=== PATIENT | male | born 1950 | race Caucasian/White ===

== ENCOUNTER 2021-09-25 15:30 | Inpatient (IN) ==
[2021-09-25] MEDS ORDERED: Iopamidol - 370 500 ML MLS IVP ONE (15:49)
[2021-09-25 16:02] LABS: Immature Granulocytes % 0.3 % (0-4); Red Cell Distribution Width 13.4 % (11.5-14.5)
[2021-09-25 16:04] LABS: Basophils % 0.1 %; Hematocrit 39.9 % (37.5-50.1); Hemoglobin 13.3 g/dL (12.9-16.9); Immature Platelets 3.8 % (1.1-6.1); Lymphocytes # 1.5 K/mcL (0.6-4.6); Lymphocytes % 21.4 %; Mean Corpuscular HGB Conc 33.3 g/dL (31.6-35.5); Mean Corpuscular Hemoglobin 29.7 pg (28.0-33.3); Mean Corpuscular Volume 89.1 fL (83.0-100.0); Mean Platelet Volume 10.2 fL (9.4-12.4); Monocytes # 1.1 K/mcL (0.0-1.3); Monocytes % 14.9 %; Neutrophils # 4.6 K/mcL (1.6-8.9); Platelet Count 137 K/mcL (140-400); Red Blood Count 4.48 M/mcL (4.19-5.50); Segmented Neutrophils % 63.3 %; White Blood Count 7.2 K/mcL (4.3-11.1)
[2021-09-25 16:06] LABS: VBG HCO3 26 mEq/L (21-27); VBG PCO2 51 mmHg (41-51); VBG PH 7.32 pH Units (7.32-7.42); VBG PO2 40 mmHg (25-50)
[2021-09-25 16:23] LABS: Alanine Aminotransferase 40 Units/L (7-52); Albumin 3.9 g/dL (3.5-5.7); Albumin/Globulin Ratio 1.3 (1.1-2.2); Alkaline Phosphatase 39 Units/L (34-104); Aspartate Amino Transferase 65 Units/L (13-39); BUN/Creatinine Ratio 21 (6-26); Bilirubin,Total 0.4 mg/dL (0.3-1.0); Blood Urea Nitrogen 19 mg/dL (8-23); Calcium 8.7 mg/dL (8.6-10.3); Carbon Dioxide 28 mEq/L (23-29); Chloride 104 mEq/L (98-107); Creatine Kinase 1707 Units/L (30-223); Globulin 2.9 g/dL (2.4-3.5); Glucose 103 mg/dL (70-105); Magnesium 1.9 mg/dL (1.6-2.6); Osmolality,Calculated 289 (280-300); Potassium 3.5 mEq/L (3.5-5.1); Sodium 138 mEq/L (136-145); Total Protein 6.8 g/dL (6.4-8.9); Troponin I < 0.03 ng/mL (< 0.04); eGFR For African Americans > 60 (> 60); eGFR For Non-African Americans > 60 (> 60)
[2021-09-25 16:28] LABS: Bilirubin,Urine Negative (Negative); Blood,Urine Moderate (Negative); Clarity,Urine Clear (Clear); Color,Urine Yellow (Yellow); Glucose,Urine (UA) Normal (Normal); Ketones,Urine Negative (Negative); Leukocyte Esterase,Urine Negative (Negative); Mucus,Urine Few per lpf (None-Few); Nitrite,Urine Negative (Negative); Protein,Urine 70 mg/dL (Neg-Trace); Urobilinogen,Urine Normal (Normal)
[2021-09-25] MEDS ORDERED: 0.9 % Sodium Chloride 1,000 ML IVC ONE (18:24)
[2021-09-25] MEDS ORDERED: Acetaminophen 325 MG TABLET PO PRN (19:48)
[2021-09-25] MEDS ORDERED: *HR* OxyCODONE Immed Rel 5 MG TABLET PO PRN (19:48)
[2021-09-25] MEDS ORDERED: Naloxone 0.4 MG/ML INJ IVP PRN (19:48)
[2021-09-25] MEDS ORDERED: *HR* HYDROcodone/Acet 5/325 mg TABLET PO PRN (19:48)
[2021-09-25] MEDS ORDERED: Ondansetron 4 MG/2 ML VIAL IVP PRN (19:48)
[2021-09-25] MEDS ORDERED: Remdesivir 200 MG in 0.9 % Sodium Chloride 100 ML IVPB ONE (21:30)
[2021-09-25] MEDS ORDERED: Haloperidol Lactate 5 MG/ML VIAL IM ONE (23:29)
[2021-09-25] MEDS: QUEtiapine Fumarate 25 MG TABLET PO SCH (23:50)
[2021-09-25] MEDS: OLANZapine 5 MG TAB.RAPDIS PO PRN (23:50)
[2021-09-25] MEDS: Melatonin 3 MG TABLET PO PRN (23:51)
[2021-09-26] MEDS ORDERED: Remdesivir 200 MG in 0.9 % Sodium Chloride 100 ML IVPB ONE (01:00)
[2021-09-26] MEDS: Dexamethasone Sodium Phos/PF 10 MG/ML VIAL IVP SCH ×2 (01:38→08:37)
[2021-09-26] MEDS: 0.9 % Sodium Chloride 1,000 ML IVC SCH ×2 (01:39→06:56)
[2021-09-26] MEDS: *HR* Enoxaparin 40 MG/0.4 ML SYRINGE SQ SCH (06:56)
[2021-09-26] MEDS: Aspirin Enteric Coated 81 MG Tablet PO SCH (08:37)
[2021-09-26] MEDS: Cholecalciferol (D-3) 1,000 UNIT (25MCG) TABLET PO SCH (08:37)
[2021-09-26] MEDS: lisinopriL 20 MG TABLET PO SCH (08:37)
[2021-09-26] MEDS: Loratadine 10 MG TABLET PO SCH (08:37)
[2021-09-26 10:59] LABS: Basophils % 0.1 %; Hematocrit 39.4 % (37.5-50.1); Hemoglobin 13.4 g/dL (12.9-16.9); Immature Granulocytes % 0.7 % (0-4); Lymphocytes # 0.6 K/mcL (0.6-4.6); Lymphocytes % 6.3 %; Mean Corpuscular Hemoglobin 29.8 pg (28.0-33.3); Mean Corpuscular Volume 87.8 fL (83.0-100.0); Mean Platelet Volume 10.1 fL (9.4-12.4); Monocytes # 0.4 K/mcL (0.0-1.3); Monocytes % 4.5 %; Neutrophils # 8.1 K/mcL (1.6-8.9); Platelet Count 149 K/mcL (140-400); Red Blood Count 4.49 M/mcL (4.19-5.50); Red Cell Distribution Width 13.3 % (11.5-14.5); Segmented Neutrophils % 88.4 %; White Blood Count 9.2 K/mcL (4.3-11.1)
[2021-09-26 11:17] LABS: Albumin 3.7 g/dL (3.5-5.7); Albumin/Globulin Ratio 1.4 (1.1-2.2); Bilirubin,Direct 0.1 mg/dL (0.0-0.2); Bilirubin,Indirect 0.3 mg/dL (0.0-1.0); Bilirubin,Total 0.4 mg/dL (0.3-1.0); Globulin 2.6 g/dL (2.4-3.5); Total Protein 6.3 g/dL (6.4-8.9)
[2021-09-26 11:20] LABS: Alanine Aminotransferase 33 Units/L (7-52); Albumin 3.6 g/dL (3.5-5.7); Albumin/Globulin Ratio 1.2 (1.1-2.2); Alkaline Phosphatase 33 Units/L (34-104); Aspartate Amino Transferase 46 Units/L (13-39); BUN/Creatinine Ratio 24 (6-26); Bilirubin,Total 0.4 mg/dL (0.3-1.0); Blood Urea Nitrogen 19 mg/dL (8-23); C-Reactive Protein 80 mg/L (Less than 10); Calcium 8.4 mg/dL (8.6-10.3); Carbon Dioxide 23 mEq/L (23-29); Chloride 108 mEq/L (98-107); Chol/HDL Ratio 2.8 (0-4.9); Cholesterol 111 mg/dL (< 200); Creatine Kinase 970 Units/L (30-223); Globulin 2.9 g/dL (2.4-3.5); Glucose 140 mg/dL (70-105); HDL Cholesterol 40 mg/dL (40-59); LDL Cholesterol,Calculated 58 mg/dL (< 100); Lactate Dehydrogenase 163 Units/L (140-271); Magnesium 1.8 mg/dL (1.6-2.6); Osmolality,Calculated 291 (280-300); Phosphorous 3.4 mg/dL (2.7-4.5); Sodium 138 mEq/L (136-145); Total Protein 6.5 g/dL (6.4-8.9); Triglycerides 63 mg/dL (< 150); eGFR For African Americans > 60 (> 60); eGFR For Non-African Americans > 60 (> 60)
[2021-09-26 11:21] LABS: INR 1.1; Prothrombin Time 12.5 Seconds (9.4-12.1)
[2021-09-26 11:37] LABS: Ferritin 153 ng/mL (20-250)
[2021-09-26] MEDS ORDERED: Remdesivir 100 MG in 0.9 % Sodium Chloride 100 ML IVPB SCH (20:00)
[2021-09-26] MEDS: QUEtiapine Fumarate 25 MG TABLET PO SCH (20:15)
[2021-09-27] MEDS ORDERED: Remdesivir 100 MG in 0.9 % Sodium Chloride 100 ML IVPB SCH (01:00)
[2021-09-27] MEDS: *HR* Enoxaparin 40 MG/0.4 ML SYRINGE SQ SCH (05:30)
[2021-09-27] MEDS: Dexamethasone Sodium Phos/PF 10 MG/ML VIAL IVP SCH ×2 (09:45→10:38)
[2021-09-27] MEDS: Loratadine 10 MG TABLET PO SCH (10:24)
[2021-09-27] MEDS: Aspirin Enteric Coated 81 MG Tablet PO SCH (10:24)
[2021-09-27] MEDS: Cholecalciferol (D-3) 1,000 UNIT (25MCG) TABLET PO SCH (10:25)
[2021-09-27] MEDS: lisinopriL 20 MG TABLET PO SCH (10:25)
[2021-09-27 10:31] LABS: Hematocrit 38.6 % (37.5-50.1); Hemoglobin 13.1 g/dL (12.9-16.9); Mean Corpuscular HGB Conc 33.9 g/dL (31.6-35.5); Mean Corpuscular Hemoglobin 29.4 pg (28.0-33.3); Mean Corpuscular Volume 86.7 fL (83.0-100.0); Mean Platelet Volume 10.3 fL (9.4-12.4); Platelet Count 147 K/mcL (140-400); Red Blood Count 4.45 M/mcL (4.19-5.50); Red Cell Distribution Width 13.1 % (11.5-14.5); White Blood Count 9.2 K/mcL (4.3-11.1)
[2021-09-27 11:12] LABS: BUN/Creatinine Ratio 36 (6-26); Blood Urea Nitrogen 28 mg/dL (8-23); Calcium 8.5 mg/dL (8.6-10.3); Carbon Dioxide 25 mEq/L (23-29); Chloride 106 mEq/L (98-107); Glucose 91 mg/dL (70-105); Osmolality,Calculated 291 (280-300); Potassium 3.9 mEq/L (3.5-5.1); Sodium 138 mEq/L (136-145); eGFR For African Americans > 60 (> 60); eGFR For Non-African Americans > 60 (> 60)
[2021-09-27 11:13] LABS: Albumin 3.6 g/dL (3.5-5.7); Albumin/Globulin Ratio 1.4 (1.1-2.2); Bilirubin,Direct 0.1 mg/dL (0.0-0.2); Bilirubin,Indirect 0.4 mg/dL (0.0-1.0); Bilirubin,Total 0.5 mg/dL (0.3-1.0); Globulin 2.5 g/dL (2.4-3.5); Total Protein 6.1 g/dL (6.4-8.9)
[2021-09-27] MEDS: dexAMETHasone 4 MG TABLET PO SCH (12:57)
[2021-09-27] MEDS ORDERED: QUEtiapine Fumarate 25 MG TABLET PO ONE (14:59)
[2021-09-27] MEDS ORDERED: Haloperidol Lactate 5 MG/ML VIAL IM ONE (17:01)
[2021-09-27] MEDS: Melatonin 3 MG TABLET PO PRN (21:22)
[2021-09-27] MEDS: OLANZapine 5 MG TAB.RAPDIS PO PRN (21:23)
[2021-09-28] MEDS: *HR* Enoxaparin 40 MG/0.4 ML SYRINGE SQ SCH (05:20)
[2021-09-28 08:01] LABS: Hematocrit 41.9 % (37.5-50.1); Hemoglobin 14.1 g/dL (12.9-16.9); Mean Corpuscular HGB Conc 33.7 g/dL (31.6-35.5); Mean Corpuscular Hemoglobin 29.1 pg (28.0-33.3); Mean Corpuscular Volume 86.6 fL (83.0-100.0); Mean Platelet Volume 10.5 fL (9.4-12.4); Platelet Count 158 K/mcL (140-400); Red Blood Count 4.84 M/mcL (4.19-5.50); Red Cell Distribution Width 12.9 % (11.5-14.5); White Blood Count 9.8 K/mcL (4.3-11.1)
[2021-09-28 08:12] LABS: BUN/Creatinine Ratio 34 (6-26); Blood Urea Nitrogen 26 mg/dL (8-23); Calcium 8.9 mg/dL (8.6-10.3); Carbon Dioxide 23 mEq/L (23-29); Chloride 105 mEq/L (98-107); Glucose 84 mg/dL (70-105); Osmolality,Calculated 290 (280-300); Potassium 4.6 mEq/L (3.5-5.1); Sodium 138 mEq/L (136-145); eGFR For African Americans > 60 (> 60); eGFR For Non-African Americans > 60 (> 60)
[2021-09-28 08:13] LABS: Albumin 3.8 g/dL (3.5-5.7); Albumin/Globulin Ratio 1.4 (1.1-2.2); Bilirubin,Indirect 0.5 mg/dL (0.0-1.0); Bilirubin,Total 0.5 mg/dL (0.3-1.0); Globulin 2.8 g/dL (2.4-3.5); Total Protein 6.6 g/dL (6.4-8.9)
[2021-09-28] MEDS: dexAMETHasone 4 MG TABLET PO SCH (09:37)
[2021-09-28] MEDS: Aspirin Enteric Coated 81 MG Tablet PO SCH ×2 (09:37→15:28)
[2021-09-28] MEDS: Loratadine 10 MG TABLET PO SCH ×2 (09:37→15:28)
[2021-09-28] MEDS: Cholecalciferol (D-3) 1,000 UNIT (25MCG) TABLET PO SCH (09:38)
[2021-09-28] MEDS: lisinopriL 20 MG TABLET PO SCH ×2 (09:38→15:29)
[2021-09-28] MEDS: OLANZapine 5 MG TAB.RAPDIS PO PRN (23:20)
[2021-09-28] MEDS: Melatonin 3 MG TABLET PO PRN (23:20)
[2021-09-29] MEDS: *HR* Enoxaparin 40 MG/0.4 ML SYRINGE SQ SCH (06:59)
[2021-09-29] MEDS: Cholecalciferol (D-3) 1,000 UNIT (25MCG) TABLET PO SCH ×2 (10:14→10:25)
[2021-09-29] MEDS: dexAMETHasone 4 MG TABLET PO SCH ×2 (10:14→10:25)
[2021-09-29] MEDS ORDERED: Haloperidol Lactate 5 MG/ML VIAL IVP ONE (19:20)
[2021-09-29] MEDS ORDERED: Haloperidol Lactate 5 MG/ML VIAL IM ONE (19:22)
[2021-09-29] MEDS: Melatonin 3 MG TABLET PO PRN (19:32)
[2021-09-29] MEDS: OLANZapine 5 MG TAB.RAPDIS PO PRN (19:32)
[2021-09-30] MEDS: *HR* Enoxaparin 40 MG/0.4 ML SYRINGE SQ SCH (05:27)
[2021-09-30] MEDS: Cholecalciferol (D-3) 1,000 UNIT (25MCG) TABLET PO SCH (08:54)
[2021-09-30] MEDS: lisinopriL 20 MG TABLET PO SCH (08:54)
[2021-09-30] MEDS: Aspirin 81 MG TAB.CHEW PO SCH (08:54)
[2021-09-30] MEDS: Loratadine 10 MG TABLET PO SCH (08:55)
[2021-09-30] MEDS: OLANZapine 5 MG TAB.RAPDIS PO PRN (20:08)
[2021-09-30] MEDS: Melatonin 3 MG TABLET PO PRN (20:08)
[2021-09-30] MEDS ORDERED: Haloperidol Lactate 5 MG/ML VIAL IM ONE (21:25)
[2021-10-01] MEDS: *HR* Enoxaparin 40 MG/0.4 ML SYRINGE SQ SCH (05:39)
[2021-10-01] MEDS: Loratadine 10 MG TABLET PO SCH (09:31)
[2021-10-01] MEDS: Aspirin 81 MG TAB.CHEW PO SCH (09:31)
[2021-10-01] MEDS: Cholecalciferol (D-3) 1,000 UNIT (25MCG) TABLET PO SCH (09:31)
[2021-10-01] MEDS: lisinopriL 20 MG TABLET PO SCH (09:31)
[2021-10-01] MEDS: Melatonin 3 MG TABLET PO PRN (21:34)
[2021-10-01] MEDS: OLANZapine 5 MG TAB.RAPDIS PO PRN (21:34)
[2021-10-02] MEDS: *HR* Enoxaparin 40 MG/0.4 ML SYRINGE SQ SCH (06:18)
[2021-10-02] MEDS: Loratadine 10 MG TABLET PO SCH (09:10)
[2021-10-02] MEDS: Aspirin 81 MG TAB.CHEW PO SCH (09:10)
[2021-10-02] MEDS: Cholecalciferol (D-3) 1,000 UNIT (25MCG) TABLET PO SCH (09:10)
[2021-10-02] MEDS: lisinopriL 20 MG TABLET PO SCH (09:10)
[2021-10-02] MEDS: Melatonin 3 MG TABLET PO PRN (20:56)
[2021-10-02] MEDS: OLANZapine 5 MG TAB.RAPDIS PO PRN (20:56)
[2021-10-03] MEDS: *HR* Enoxaparin 40 MG/0.4 ML SYRINGE SQ SCH (05:32)
[2021-10-03 07:03] VITALS: BP 112/74; PULSE 63; TEMP 97.5; O2SAT 96
[2021-10-03] MEDS: lisinopriL 20 MG TABLET PO SCH (10:51)
[2021-10-03] MEDS: Aspirin 81 MG TAB.CHEW PO SCH (10:52)
[2021-10-03] MEDS: Loratadine 10 MG TABLET PO SCH (10:52)
[2021-10-03] MEDS: Cholecalciferol (D-3) 1,000 UNIT (25MCG) TABLET PO SCH (11:43)
== END 2021-10-03 12:45 | disposition home health service (06) | DRG 177 ==
LOC: EMEROOARM 15:30 → 3ANU 15:30
PROVIDERS: ADMIT Student in an Organized Health Care Education/Training Program; ATTEND Student in an Organized Health Care Education/Training Program

== ENCOUNTER 2021-11-22 21:48 | Observation (INO) ==
[2021-11-22] MEDS ORDERED: SODIUM CHLORIDE/NAHCO3/KCL/PEG 4,000 ML SOLN.RECON PO ONE (22:39)
[2021-11-22 22:48] LABS: Basophils # 0.1 K/mcL (0.0-0.2); Basophils % 0.5 %; Eosinophils # 0.2 K/mcL (0.0-0.6); Hematocrit 38.1 % (37.5-50.1); Hemoglobin 12.8 g/dL (12.9-16.9); Immature Granulocytes % 0.3 % (0-4); Lymphocytes # 2.7 K/mcL (0.6-4.6); Lymphocytes % 28.4 %; Mean Corpuscular HGB Conc 33.6 g/dL (31.6-35.5); Mean Corpuscular Hemoglobin 29.3 pg (28.0-33.3); Mean Corpuscular Volume 87.2 fL (83.0-100.0); Mean Platelet Volume 10.2 fL (9.4-12.4); Monocytes # 0.9 K/mcL (0.0-1.3); Monocytes % 9.7 %; Neutrophils # 5.6 K/mcL (1.6-8.9); Platelet Count 198 K/mcL (140-400); Red Blood Count 4.37 M/mcL (4.19-5.50); Red Cell Distribution Width 13.1 % (11.5-14.5); Segmented Neutrophils % 59.1 %; White Blood Count 9.4 K/mcL (4.3-11.1)
[2021-11-22 23:10] LABS: Alanine Aminotransferase 15 Units/L (7-52); Albumin 3.9 g/dL (3.5-5.7); Albumin/Globulin Ratio 1.4 (1.1-2.2); Alkaline Phosphatase 44 Units/L (34-104); Aspartate Amino Transferase 17 Units/L (13-39); BUN/Creatinine Ratio 26 (6-26); Bilirubin,Direct 0.2 mg/dL (0.0-0.2); Bilirubin,Indirect 0.5 mg/dL (0.0-1.0); Bilirubin,Total 0.7 mg/dL (0.3-1.0); Blood Urea Nitrogen 22 mg/dL (8-23); Calcium 9.1 mg/dL (8.6-10.3); Carbon Dioxide 26 mEq/L (23-29); Chloride 102 mEq/L (98-107); Globulin 2.8 g/dL (2.4-3.5); Glucose 94 mg/dL (70-105); Lipase 47 Units/L (11-82); Osmolality,Calculated 283 (280-300); Potassium 3.9 mEq/L (3.5-5.1); Sodium 135 mEq/L (136-145); Total Protein 6.7 g/dL (6.4-8.9)
[2021-11-23] MEDS ORDERED: Naloxone 0.4 MG/ML INJ IVP PRN (02:49)
[2021-11-23] MEDS ORDERED: *HR* HYDROcodone/Acet 5/325 mg TABLET PO PRN (02:49)
[2021-11-23] MEDS ORDERED: *HR* OxyCODONE Immed Rel 5 MG TABLET PO PRN (02:49)
[2021-11-23] MEDS ORDERED: Ondansetron ODT 4 MG TAB.RAPDIS SL PRN (02:49)
[2021-11-23] MEDS ORDERED: Acetaminophen 325 MG TABLET PO PRN (02:49)
[2021-11-23] MEDS ORDERED: MOM Conc 10 ML UD.LIQ PO ONE (02:51)
[2021-11-23] MEDS ORDERED: Lactulose Oral Soln 20 GM/30 ML UDC PO ONE (02:52)
[2021-11-23] MEDS: QUEtiapine Fumarate 100 MG TABLET PO SCH ×2 (03:44→21:16)
[2021-11-23 05:58] LABS: Hematocrit 39.6 % (37.5-50.1); Hemoglobin 13.4 g/dL (12.9-16.9); Mean Corpuscular HGB Conc 33.8 g/dL (31.6-35.5); Mean Corpuscular Hemoglobin 29.1 pg (28.0-33.3); Mean Corpuscular Volume 86.1 fL (83.0-100.0); Mean Platelet Volume 10.5 fL (9.4-12.4); Platelet Count 199 K/mcL (140-400); White Blood Count 8.9 K/mcL (4.3-11.1)
[2021-11-23 06:22] LABS: BUN/Creatinine Ratio 28 (6-26); Blood Urea Nitrogen 21 mg/dL (8-23); Calcium 8.9 mg/dL (8.6-10.3); Carbon Dioxide 20 mEq/L (23-29); Chloride 102 mEq/L (98-107); Glucose 87 mg/dL (70-105); Osmolality,Calculated 278 (280-300); Phosphorous 3.4 mg/dL (2.7-4.5); Potassium 4.1 mEq/L (3.5-5.1); Sodium 133 mEq/L (136-145)
[2021-11-23] MEDS: polyethylene glycoL 3350 17 GM POWD.PACK PO SCH (13:29)
[2021-11-24] MEDS: polyethylene glycoL 3350 17 GM POWD.PACK PO SCH (09:28)
[2021-11-24] MEDS ORDERED: *HR* Promethazine 25 MG/ML VIAL IM PRN (15:18)
[2021-11-24] MEDS ORDERED: 0.9 % Sodium Chloride 1,000 ML IVC SCH (15:30)
[2021-11-24] MEDS: QUEtiapine Fumarate 100 MG TABLET PO SCH (20:28)
[2021-11-25] MEDS: *HR* Enoxaparin 40 MG/0.4 ML SYRINGE SQ SCH (05:43)
[2021-11-25] MEDS: polyethylene glycoL 3350 17 GM POWD.PACK PO SCH (08:05)
[2021-11-25] MEDS: QUEtiapine Fumarate 100 MG TABLET PO SCH ×4 (08:06→22:49)
[2021-11-25] MEDS: Aspirin Enteric Coated 81 MG Tablet PO SCH (08:06)
[2021-11-25] MEDS: lisinopriL 20 MG TABLET PO SCH (08:06)
[2021-11-25] MEDS: Melatonin 3 MG TABLET PO PRN (21:26)
[2021-11-26] MEDS: *HR* Enoxaparin 40 MG/0.4 ML SYRINGE SQ SCH (05:40)
[2021-11-26] MEDS: Aspirin Enteric Coated 81 MG Tablet PO SCH (09:07)
[2021-11-26] MEDS: lisinopriL 20 MG TABLET PO SCH (09:07)
[2021-11-26] MEDS: polyethylene glycoL 3350 17 GM POWD.PACK PO SCH (09:07)
[2021-11-26] MEDS: QUEtiapine Fumarate 100 MG TABLET PO SCH ×3 (09:07→19:44)
[2021-11-26] MEDS: Melatonin 3 MG TABLET PO PRN (19:44)
[2021-11-27] MEDS: *HR* Enoxaparin 40 MG/0.4 ML SYRINGE SQ SCH (05:39)
[2021-11-27 06:58] VITALS: BP 123/72; PULSE 74; TEMP 97.3; O2SAT 99
[2021-11-27] MEDS: polyethylene glycoL 3350 17 GM POWD.PACK PO SCH (08:19)
[2021-11-27] MEDS: QUEtiapine Fumarate 100 MG TABLET PO SCH (08:19)
[2021-11-27] MEDS: Aspirin Enteric Coated 81 MG Tablet PO SCH (08:19)
[2021-11-27] MEDS: lisinopriL 20 MG TABLET PO SCH (08:19)
== END 2021-11-27 13:52 ==
LOC: 3BNU 21:48 → EMEROOARM 21:48 → SUATTDRO 11-23 01:32 → 3BNU 11-23 02:20
PROVIDERS: ADMIT Internal Medicine; ATTEND Registered Nurse